=== PATIENT | male | born 1955 | race Caucasian/White ===

== ENCOUNTER 2017-06-26 15:22 | Emergency (ER) | payer BC ==
--- NOTE | 2017-06-26 15:41 | PDOC ---
History of Present Illness - General History Source: Patient Exam Limitations: No Limitations - History of Present Illness Initial Comments: 06/26/17 16:05 61 y/o M with a PMHx of HTN, gout presents to the ED with right ankle pain. Patient reports he rolled his ankle a week ago. He states his ankle has not bothered him at first. He reports the pain is better with activity. He rates the pain a 4/10. He states he woke up last night with a throbbing pain at the site. He reports associated redness and warmth. He reports the symptoms are similar to episodes of gout, except in his right foot rather than his left where it usually expressed. Patient reports taking Naproxen with no relief. Denies recent travel. Denies history of trauma to the right ankle. Denies fever , chills. Denies chest pain, SOB. <Christine Fernandes - Last Filed: 06/26/17 16:18> <Bobby Villalobos - Last Filed: 06/26/17 16:34> - General Chief Complaint: Injury Stated Complaint: RT ANKLE PAIN Time Seen by Provider: 06/26/17 15:26 Past History <Christine Fernandes - Last Filed: 06/26/17 16:18> - Past Medical History Cardiac Disorders: Yes (A FIB) HTN: Yes Hypercholesterolemia: Yes - Surgical History Cardiac Surgery: Yes (cardioversion 01/24/2011) - Psycho/Social/Smoking Cessation Hx Anxiety: No Suicidal Ideation: No Smoking History: Never smoked Hx Alcohol Use: No Drug/Substance Use Hx: No Substance Use Type: None <Bobby Villalobos - Last Filed: 06/26/17 16:34> - Past Medical History Allergies/Adverse Reactions: Allergies Allergy/AdvReac Type Severity Reaction Status Date / Time No Known Allergies Allergy Verified 06/26/17 15:23 Home Medications: Ambulatory Orders Aspirin [ASA -] 81 mg PO DAILY 08/06/16 Benazepril HCl 10 mg PO DAILY 08/06/16 Cetirizine HCl [Zyrtec -] 10 mg PO DAILY 08/06/16 Cyanocobalamin [Vitamin B12 -] 500 mcg PO DAILY 08/06/16 Furosemide [Lasix -] 80 mg PO ASDIR 08/06/16 Guaifenesin [Mucinex] 600 mg PO BID 08/06/16 Latanoprost 0.005% Eye Drops [Xalatan 0.005% Eye Drops -] 1 drop OU HS 08/06/16 Levothyroxine [Synthroid -] 50 mcg PO DAILY 08/06/16 Magnesium 250 mg PO DAILY 08/06/16 Melatonin [Melatin] 3 mg PO DAILY 08/06/16 Metoprolol Tartrate 50 mg PO BID 08/06/16 Montelukast Na [Singulair -] 10 mg PO HS 08/06/16 Multivit-Min/FA/Lycopen/Lutein [Centrum Silver Tablet] 1 each PO DAILY 08/06/16 [place]burn-3/Dha/Epa/Fish Oil [Fish Oil EC 1,200 mg Softgel] 1 each PO DAILY Review of Systems - Review of Systems Constitutional: No: Chills, Fever Respiratory: No: Cough, Shortness of Breath Cardiac (ROS): No: Chest Pain, Palpitations Musculoskeletal: Yes: Joint Pain Neurological: No: Headache, Tingling, Weakness All Other Systems: Reviewed and Negative <Bobby Villalobos - Last Filed: 06/26/17 16:34> *Physical Exam - Vital Signs Last Vital Signs Temp Pulse Resp BP Pulse Ox 98.9 F 57 L 20 146/96 98 06/26/17 15:23 06/26/17 15:23 06/26/17 15:23 06/26/17 15:23 06/26/17 15:23 - Physical Exam Comments: 06/26/17 16:05 GENERAL: The patient is awake, alert, and fully oriented, in no acute distress. HEAD: Normal with no signs of trauma. EYES: Pupils equal, round and reactive to light, extraocular movements intact, sclera anicteric, conjunctiva clear with no pallor. ENT: Ears normal, nares patent, oropharynx clear without exudates. Moist mucous membranes. NECK: Normal range of motion, supple without lymphadenopathy, JVD, or masses. LUNGS: Breath sounds equal, clear to auscultation bilaterally. No wheeze/ crackles. HEART: Regular rate and rhythm, normal S1 and S2 without murmur or rub. ABDOMEN: Soft/nontender/nondistended. BS wnl. No guarding or rebound. No palpable masses. No hepatosplenomegaly. EXTREMITIES: Slight rubor along medial aspect of ankle. No joint effusion, no focal tenderness, no bony deformity, full ROM, good distal pulse. NEUROLOGICAL: Cranial nerves II through XII grossly intact. Normal speech, normal gait. PSYCH: Normal mood, normal affect. SKIN: Warm, Dry, normal turgor, no rashes or lesions noted <Christine Fernandes A - Last Filed: 06/26/17 16:18> ED Treatment Course - RADIOLOGY Radiograph Interpretation: 06/26/17 16:18 Right Ankle X-Ray Reported by Dr. Jadiel Melissa Impression: TIny cortical avulsion fracture along lateral margin of the medial malleolus. Soft tissue swelling over the lateral malleolus. <Christine Fernandes A - Last Filed: 06/26/17 16:18> Medical Decision Making - Medical Decision Making 06/26/17 16:00 61-year-old male with history of gout presents with right ankle pain since this morning. Patient had inversion right ankle injury about one week ago, was fine without pain or swelling until this morning, when he developed pain primarily in the medial aspect of the ankle worse with rest and improved with ambulating. He did note some redness on the medial aspect of the ankle, describes the pain as typical of his gout pain, which is usually in his left foot. Over the last week he did have a gout exacerbation in his left foot that was treated with his typical 3 days of naproxen, the patient took additional naproxen today without relief this right foot pain so he presents for evaluation. No recent long flights or travel, no other injury or insect bites. Afebrile. Ill-appearing. Small area of redness about 2 cm along the medial right ankle, there is no other swelling or joint effusion, there is no focal bony tenderness or deformity , full range of motion of the right ankle and toes, neurovascular intact. 61-year-old male with likely gout exacerbation prompted by sprain/inversion injury. Less likely infectious, no evidence of vascular process, low suspicion for fracture. Right ankle x-ray Trial of colchicine and NSAIDs Dispo Accordingly 06/26/17 16:29 X-ray does show a tiny avulsion fracture at the medial malleolus, question acute in my impression. Still suspect that this is gout exacerbation secondary to injury/trauma. Will apply Gregory wrap, weightbearing as tolerated regarding the fracture. Ice and elevation. We'll give colchicine dose 2, naproxen course at home, follow up with his primary care physician and orthopedics. He understands return criteria. No indication for antibiotics at this time as this is not consistent with cellulitis. <Bobby Villalobos - Last Filed: 06/26/17 16:34> *DC/Admit/Observation/Transfer - Attestations Scribe Attestion: 06/26/17 16:06 Documentation prepared by Christine Fernandes, acting as medical numerical control operator for Bobby Villalobos MD. <Christine Fernandes - Last Filed: 06/26/17 16:18> <Bobby Villalobos - Last Filed: 06/26/17 16:34> Diagnosis at time of Disposition: Exacerbation of gout Right ankle pain Qualifiers: Chronicity: acute Qualified Code(s): M25.571 - Pain in right ankle and joints of right foot Avulsion fracture of ankle Qualifiers: Encounter type: initial encounter Fracture type: closed Laterality: right Qualified Code(s): S82.891A - Other fracture of right lower leg, initial encounter for closed fracture - Discharge Dispostion Disposition: HOME Condition at time of disposition: Stable - Referrals Referrals: Axel Jamison MD [Staff Physician] - - Patient Instructions Printed Discharge Instructions: DI for Gout, DI for Avulsion Fracture Additional Instructions: An x-ray shows a tiny avulsion fracture of the right ankle bone. While this may have prompted your symptoms, the presentation does seem most consistent with a gout exacerbation, which can happen in the setting of injury. You were given colchicine 2 doses, which is a medication for gout. Take the second dose at 5:30 PM. Continue naproxen as previously outlined by your primary care physician for the next 2 days. Ice and elevate the right leg, weightbearing as tolerated. Maintain Gregory bandage for comfort. You should follow up with your primary care physician and an orthopedic ( consider calling Dr. Jamison) as soon as possible regarding today's emergency department visit. Return to the emergency department for any new or concerning symptoms, including severe swelling or pain, fevers or chills, expanding redness, numbness or weakness.
[2017-06-26 15:48] VITALS: BP 146/96; PULSE 57; TEMP 98.9; BMI 28.8
[2017-06-26] MEDS ORDERED: NAPROXEN 500 MG TABLET (FP) PO ONE (15:52)
[2017-06-26] MEDS ORDERED: COLCHICINE 0.6 MG TABLET (FP) PO ONE ×2 (15:52→16:28)
[2017-06-26] MEDS ORDERED: NAPROXEN 500 MG TABLET (FP) ONE (16:24)
[2017-06-26] MEDS ORDERED: COLCHICINE 0.6 MG TABLET (FP) ONE (16:25)
== END 2017-06-26 16:43 | disposition home or self-care (01) ==
LOC: FER 15:22
DX: S82.891A Other fracture of right lower leg, initial encounter for closed fracture (principal); M10.9 Gout, unspecified; M25.571 Pain in right ankle and joints of right foot; I48.91 Unspecified atrial fibrillation; I10 Essential (primary) hypertension; E78.00 Pure hypercholesterolemia, unspecified; X58.XXXA Exposure to other specified factors, initial encounter; Y93.89 Activity, other specified; Y92.9 Unspecified place or not applicable
CPT/HCPCS: 73610-TC-RT; 99282-25

== ENCOUNTER → 2019-01-22 | Day surgery (SDC) | payer BC ==
[2019-01-20 16:49] VITALS: BMI 28.5
[~2019-01-22] MED LIST: BUPIVACAINE HCL/PF 0.5% (5MG/ML) 10 ML VIAL IJ ONE; BUPIVACAINE HCL/PF 0.5% (5MG/ML) 10 ML VIAL ONE; DEXAMETHASONE SOD PHOSPHATE 4 MG/1 ML VIAL ONE; GLYCOPYRROLATE 0.2 MG/1 ML VIAL ONE; KETOROLAC TROMETHAMINE 30 MG/1 ML VIAL ONE; LACTATED RINGERS SOLUTION 1,000 ML IV SCH; LIDOCAINE HCL/PF 2% SDV 5ML VIAL ONE; MIDAZOLAM HCL 2 MG/2 ML SINGLE DOSE VIAL ONE; NEOSTIGMINE METHYLSULFATE 0.5 MG/1 ML - 10 ML MDV ONE; ONDANSETRON 4 MG/2 ML VIAL IVPUSH PRN; ONDANSETRON 4 MG/2 ML VIAL ONE; PROPOFOL 20 ML ONE; ROCURONIUM BROMIDE 50 MG/5 ML VIAL ONE; SODIUM CHLORIDE 0.9% P/F 10 ML VIAL IJ ONE; SUCCINYLCHOLINE CHLORIDE 200 MG/10 ML VIAL ONE; ceFAZolin SODIUM 1 GM VIAL IVPB ONE; ceFAZolin SODIUM 1 GM VIAL ONE; ePHEDrine SULFATE 50 MG/1 ML AMPULE ONE; oxyCODONE HCL 5 MG TABLET ONE; oxyCODONE HCL 5 MG TABLET PO ONE; oxyCODONE HCL 5 MG TABLET PO PRN
--- NOTE | 2019-01-22 17:28 | OP ---
Operative Note - Note: Operative Date: 01/22/19 Pre-Operative Diagnosis: left inguinal hernia and umbilical hernia Operation: laparoscopic repair of left inguinal hernia and umbilical hernia with mesh Findings: left indirect inguinal hernia and umbilical hernia Post-Operative Diagnosis: Same as Pre-op Surgeon: Kirill Phillips Anesthesiologist/PATTERNATOR: Santos Verduzco Anesthesia: General Specimens Removed: umbilical hernia sac Estimated Blood Loss (mls): 10 Operative Report Dictated: Yes
--- NOTE | 2019-01-22 17:30 | SURG ---
Surgery Postal Worker Note Postal Worker: Santos Verduzco PA-C Date of Service: 01/22/19 Diagnosis: left inguinal hernia and umbilical hernia Procedure: laparoscopic repair of left inguinal hernia and umbilical hernia with mesh I was present for the entirety of the operative procedure. For further detail, please refer to operative report. Visit type - Case Type Case Type: Scheduled - Emergency Emergency Visit: No - New patient This patient is new to me today: Yes Date on this admission: 01/22/19
[2019-01-22 18:37] VITALS: BP 139/66; PULSE 58; TEMP 97.4
--- NOTE | 2019-01-23 12:26 | OP ---
DATE OF OPERATION: 01/22/2019 PREOPERATIVE DIAGNOSIS: Left inguinal hernia and umbilical hernia. POSTOPERATIVE DIAGNOSIS: Left indirect inguinal hernia and umbilical hernia. PROCEDURE: Laparoscopic repair of left inguinal hernia with mesh and repair of umbilical hernia with mesh. SURGEON: Kirill Phillips MD TRAVEL PT: TANISHA Laurent ANESTHESIA: General. COMPLICATIONS: None. ESTIMATED BLOOD LOSS: Bleeding was minimal. Patient tolerated the procedure well. This is a 63-year-old male with a history of atrial fibrillation on Eliquis who presents with left groin pain and on physical examination was consistent with both an umbilical hernia, as well as a left inguinal hernia. Risks and benefits discussed with the patient. Options were discussed, the potential use for mesh here, as well as laparoscopic, versus open repair. He agreed to proceed with laparoscopic repair. In the operating room he received IV antibiotics. He was placed in the supine position. After induction of general anesthesia, he was prepped and draped in the usual sterile fashion. The operation began with a periumbilical incision which was performed with the scalpel and carried to the subcutaneous tissues with cautery. The anterior fascia was exposed and then an incision was made longitudinally for approximately 1 cm over the rectus sheath, which was then retracted laterally allowing further dissection to the preperitoneal space. A balloon dissector space maker 2 was then placed into the space and dissection was accomplished with approximately 500 mL inflation with the balloon and then the balloon was removed and a 12 mm port left in position and insufflated to a pressure of 15 mmHg was accomplished. At this point then under direct vision two 5 mm ports were placed directly into the preperitoneal space under direct vision, one in the suprapubic position and the other fpc between the umbilicus and the pubic symphysis. Dissection was performed in 3 steps. The medial dissection was performed with exposure of the Zack ligament using slight cautery along the Zack ligament. Next, the lateral dissection was performed with blunt dissection using 2 [place] dissectors to carefully expose the iliopubic tourniquet laterally taking down all the natural adhesions to the peritoneum. The central dissection was done which was slowly reduced from the inguinal canal and released and dissected off the cord structures. Care was taken to avoid injury to the vas deferens. Cord structures and testicular vessels were appropriately protected and with the sac completely released and dissected and a ProGrip mesh 10 x 15 cm in size was then introduced and it was methodically opened carefully to cover both direct, indirect and femoral spaces. With the mesh in good position then Marcaine was infiltrated into the preperitoneal space and the ports were removed under direct vision. Attention was then directed to the umbilical hernia, which was dissected off the umbilical stalk carefully with the use of cautery and the fascia was exposed. The sac was then divided with cautery at the level of the fascia. A Seema clamp was placed at the omental contents here and the sac was divided and then the sutures tied with a 2-0 Vicryl tie. Next, the fascial edges were exposed with cautery and then the repair was done primarily with 0 Vicryl sutures were placed in interrupted fashion. A total of 4 sutures were used to repair the primary defect. The fascial incision purposely made longitudinally along the rectus sheath for the placement of the port was also closed with 0 Vicryl sutures in interrupted fashion and a segment of ProGrip mesh of approximately 5 x 6 cm was then brought in and positioned to cover both defects that had been primarily repairs. These were secured in place with 3 sutures of 2-0 Vicryl. The subcutaneous tissue was then approximated with 3-0 Vicryl. The skin was closed with 4-0 Monocryl at all port sites. Dermabond was applied and the patient was returned to the recovery room awake, alert and in stable condition. He tolerated the procedure well. Sandhya [id number]
--- NOTE | 2019-01-24 15:54 | PATH ---
Surgical Pathology Report Patient Name: KARLEY ARTHUR [facility]. Rec. #: [id number] /Age/Gender: 1955 (Age: 63) / M Account: [id number] Location: [facility] SURGICAL Taken: 01/22/2019 Received: 01/23/2019 Reported: 01/24/2019 Physicians: Kirill Phillips M.D. Specimen(s) Received UMBILICAL HERNIA CONTENTS Clinical History Left inguinal hernia, umbilical hernia Final Diagnosis UMBILICAL HERNIA CONTENTS, EXCISION: FIBROADIPOSE TISSUE WITH MILD CHRONIC INFLAMMATION AND REACTIVE CHANGE, CONSISTENT WITH HERNIA SAC. Electronically Signed Marely Macias M.D. Gross Description Received in formalin labeled "umbilical hernia contents," is a 3.0 x 2.8 x 2.0 cm portion of fibroadipose tissue with attached fat, consistent with a hernia sac. Customer Service And Sales Consultant sections are submitted in one cassette. /01/23/2019 saudi01/23/2019
== END | disposition home or self-care (01) ==
LOC: JASU-SURG 13:18
PROVIDERS: ATTEND Surgery
PROC: 0WUF4JZ Supplement Abdominal Wall with Synthetic Substitute, Percutaneous Endoscopic Approach (ICD-10-PCS; 2019-01-22)
PROC: 0YU64JZ Supplement Left Inguinal Region with Synthetic Substitute, Percutaneous Endoscopic Approach (ICD-10-PCS; principal; 2019-01-22 15:00)
DX: K40.90 Unilateral inguinal hernia, without obstruction or gangrene, not specified as recurrent (principal); K42.9 Umbilical hernia without obstruction or gangrene
CPT/HCPCS: 88302-TC; 94760

== ENCOUNTER 2025-06-17 07:05 | Emergency (ER) | payer OTHER, BC ==
[2025-06-17 07:12] VITALS: BP 117/75; PULSE 84; BMI 33.5
[2025-06-17 08:45] LABS: CO2 25.0 mmol/L (21-32); CREATININE 0.9 mg/dl (0.6-1.3); GLUCOSE,RANDOM 127.0 mg/dl (74-106)
[2025-06-17 11:29] VITALS: RESP 18; TEMP 98
== END 2025-06-17 11:34 | disposition home or self-care (01) ==
LOC: FER 07:05
DX: R59.0 Localized enlarged lymph nodes (principal); R63.4 Abnormal weight loss; R63.8 Other symptoms and signs concerning food and fluid intake; M54.50 Low back pain, unspecified
CPT/HCPCS: 36415; 70450-TC; 71260-TC; 74177-TC; 80048; 99285-25; Q9967